=== PATIENT | male | born 1960 | race Caucasian/White ===

== ENCOUNTER → 2019-04-01 13:36 | Outpatient (CLI) | payer OTHER, SELFPAY ==
--- NOTE | 2019-04-01 | DI.RAD.S_ITS ---
PROCEDURE: XR FOOT RT MIN 3V INDICATIONS: RT FOOT/ANKLE INJURY TECHNIQUE: 3 views of the foot were acquired. COMPARISON: None. FINDINGS: Bones: No fractures or dislocations. No suspicious bony lesions. Soft tissues: No tibiotalar joint effusion. Achilles tendon appears normal. IMPRESSION: No evidence acute bony abnormality of the right foot Dictated by: Min Weathers M.D. on 04/01/2019 at 16:35 Approved by: Min Weathers M.D. on 04/01/2019 at 16:35
--- NOTE | 2019-04-01 | DI.RAD.S_ITS ---
PROCEDURE: XR ANKLE RT MIN 3V INDICATIONS: RT ANKLE/FOOT INJURY TECHNIQUE: 3 views of the ankle were acquired. COMPARISON: None. FINDINGS: Bones: No fractures or dislocations. Ankle mortise is normally aligned. No suspicious bony lesions. Soft tissues: No tibiotalar joint effusion. Achilles tendon appears normal. Medial and lateral edema. IMPRESSION: No evidence acute bony abnormality of the right ankle Dictated by: Min Weathers M.D. on 04/01/2019 at 16:35 Approved by: Min Weathers M.D. on 04/01/2019 at 16:36
== END ==
PROVIDERS: Visit Provider Internal Medicine
DX: S99.911A Unspecified injury of right ankle, initial encounter (principal); S99.921A Unspecified injury of right foot, initial encounter; X58.XXXA Exposure to other specified factors, initial encounter
CPT/HCPCS: 73610; 73630